=== PATIENT | male | born 1930 | race Caucasian/White ===

== ENCOUNTER 2017-02-04 09:40 | Emergency (ER) | payer MEDICARE, OTHER ==
[~2017-02-04 09:40] MED LIST: AMLO5TAB96 PO; ASPI81TA21 PO; CLOP75 PO; COZA100T PO; DOCU1CAP39 PO; DONE10TA14 PO; FISH100020 PO; MEMA5 PO; VITA100018 PO
[2017-02-04 09:44] VITALS: BP 174/102; PULSE 75; RESP 16; TEMP 97.8; O2SAT 91
[2017-02-04] MEDS ORDERED: DIPHTH/TETANUS/ACEL PERTUSSIS (BOOSTER) 0.5 ML VIAL/PFS IM ONE (10:00)
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
[2017-02-04] MEDS ORDERED: RIVA9.5T T-DERMAL (10:55)
[2017-02-04] MEDS ORDERED: ASPI1TAB69 PO (10:55)
[2017-02-04] MEDS ORDERED: COLA100C3 PO (10:58)
[2017-02-04] MEDS ORDERED: OMEG100037 PO (10:58)
[2017-02-04] MEDS ORDERED: LOSA50TA PO (10:58)
[2017-02-04] MEDS ORDERED: VITA1000 PO (10:58)
[2017-02-04] MEDS ORDERED: AMLO5 PO (10:58)
[2017-02-04] MEDS ORDERED: MELA5TAB15 PO (11:00)
[2017-02-04] MEDS ORDERED: SERT25TA83 PO (11:00)
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
[2017-02-04 11:30] VITALS: BP 186/86; PULSE 62; RESP 18; O2SAT 95
== END 2017-02-04 11:43 | disposition home or self-care (01) ==
LOC: PHED 09:40
DX: S09.90XA Unspecified injury of head, initial encounter (principal); S00.81XA Abrasion of other part of head, initial encounter; S50.312A Abrasion of left elbow, initial encounter; S80.212A Abrasion, left knee, initial encounter; I10 Essential (primary) hypertension; F03.90 Unspecified dementia, unspecified severity, without behavioral disturbance, psychotic disturbance, mood disturbance, and anxiety; V19.49XA Pedal cycle driver injured in collision with other motor vehicles in traffic accident, initial encounter; Y93.55 Activity, bike riding; Y92.488 Other paved roadways as the place of occurrence of the external cause; Z23 Encounter for immunization; Z79.82 Long term (current) use of aspirin
CPT/HCPCS: 70450; 72125; 90471; 90715